=== PATIENT | female | born 1950 | race Caucasian/White ===

== ENCOUNTER 2022-07-30 07:49 | Day surgery (SDC) | payer MEDICARE, OTHER ==
[~2022-07-30] VITALS: Ht 165.1 cm; Wt 68.5 kg
[~2022-07-30 07:49] MED LIST: ATOR20TA86 PO; DULA3PEN; EMPA25TA3 PO; FERR325T27 PO; HYDR25TA2 PO; LISI-894 PO
[2022-07-30] MEDS ORDERED: PROPOFOL 1% 20 ML VIAL IVP ONE (07:50)
[2022-07-30] MEDS ORDERED: SODIUM CHLORIDE 0.9% 1,000 ML IV ONE (08:00)
[2022-07-30] MEDS ORDERED: SODIUM CHLORIDE 0.9% 1,000 ML ONE (08:42)
[2022-07-30 09:01] LABS: COVID AG,FIA SOURCE NASAL SWAB
[2022-07-30 09:26] LABS: GLUCOMETER DEV NAME(LOC) SDS.; GLUCOSE,POINT OF CARE 100 MG/DL (70-110)
== END 2022-07-30 11:10 | disposition home or self-care (01) ==
LOC: SURGERY 07:49
PROVIDERS: ATTEND Internal Medicine Gastroenterology
DX: I85.00 Esophageal varices without bleeding (principal); K74.60 Unspecified cirrhosis of liver; E11.9 Type 2 diabetes mellitus without complications; I10 Essential (primary) hypertension; D64.9 Anemia, unspecified; K76.6 Portal hypertension; K31.89 Other diseases of stomach and duodenum; Z20.822 Contact with and (suspected) exposure to COVID-19; Z79.899 Other long term (current) drug therapy
CPT/HCPCS: 43244; 82962; 87426; J2704; J7030; C9803

== ENCOUNTER 2022-12-16 07:02 | Day surgery (SDC) | payer MEDICARE, OTHER ==
[~2022-12-16] VITALS: Ht 165.1 cm; Wt 68.6 kg
[~2022-12-16 07:02] MED LIST changes: +CARV12.530 PO; +CHOL200059 PO; -DULA3PEN; +DULA3PEN SQ; +HYDR-4870 PO; -HYDR25TA2 PO; +MEGE40TA5 PO; +SODIUM CHLORIDE 0.9% 1,000 ML IV ONE
[2022-12-16] MEDS ORDERED: GLYCOPYRROLATE 0.2 MG/ML VIAL IM ONE (07:03)
[2022-12-16] MEDS ORDERED: LIDOCAINE/PF 2% 5 ML SYRINGE IVP ONE (07:03)
[2022-12-16] MEDS ORDERED: PROPOFOL 1% 20 ML VIAL IVP ONE (07:03)
[2022-12-16] MEDS ORDERED: EPHEDrine SULFATE 50 MG/ML VIAL IM ONE (07:03)
[2022-12-16] MEDS ORDERED: CIPR500T10 PO (07:35)
[2022-12-16 07:51] LABS: GLUCOMETER DEV NAME(LOC) SDS.; GLUCOSE,POINT OF CARE 119 MG/DL (70-110)
== END 2022-12-16 11:20 | disposition home or self-care (01) ==
LOC: SURGERY 07:02
PROVIDERS: ATTEND Internal Medicine Gastroenterology
DX: I85.00 Esophageal varices without bleeding (principal); K76.6 Portal hypertension; K31.89 Other diseases of stomach and duodenum; K74.60 Unspecified cirrhosis of liver; I10 Essential (primary) hypertension; E78.00 Pure hypercholesterolemia, unspecified; E11.9 Type 2 diabetes mellitus without complications; D64.9 Anemia, unspecified; Z86.010 Personal history of colon polyps; D50.9 Iron deficiency anemia, unspecified; Z98.890 Other specified postprocedural states
CPT/HCPCS: 43239; 88305; 82962; 88312; 88313; C1769; J2704; J3490 ×3